=== PATIENT | male | born 1965 | race Caucasian/White ===

== ENCOUNTER 2018-09-27 05:44 | Emergency (ER) | payer OTHER ==
--- NOTE | 2018-09-27 08:35 | EDM.PDOC ---
ED HPI GENERAL MEDICAL PROBLEM - General Chief Complaint: Lower Extremity Injury/Pain Stated Complaint: Right Knee pain Time Seen by Provider: 09/27/18 06:15 Source of Information: Reports: Patient History Limitations: Reports: No Limitations - History of Present Illness INITIAL COMMENTS - FREE TEXT/NARRATIVE: Patient is a 53-year-old gentleman who was seen in the emergency room with chief complaint of right knee pain patient states that yesterday he was working at [email or web address] sitting on a bucket when he got up he had some knee pain after a while he walked out and the pain was relieved he went home ice the knee and went to sleep at around 4:00 he woke up with severe pain unable to move [place] evaluated x-rays revealed no fractures no some swelling in the suprapatellar area at this time I spoke with was applied and patient will be seen in orthopedic clinic at a later date patient called for appointment with orthopedics at . Onset: Sudden Duration: Hour(s):, Getting Worse Location: Reports: Lower Extremity, Right Quality: Reports: Stabbing Severity: Moderate Improves with: Reports: Rest Worsens with: Reports: Movement Context: Reports: Activity Associated Symptoms: Reports: No Other Symptoms Treatments SCREENING SPECIALIST: Reports: Cold Therapy, NSAIDS Right Knee Pain Score (Numeric/FACES): 8 - Related Data Allergies Allergy/AdvReac Type Severity Reaction Status Date / Time hydrocodone Allergy Palpitation Verified 10/06/14 21:14 s Home Meds: Home Meds Aspirin [Christianne Chewable Aspirin] 81 mg PO DAILY 06/11/14 [History] Celecoxib [CeleBREX] 200 mg PO DAILY 10/06/14 [History] Acetaminophen [Tylenol Extra Strength] 1,000 mg PO Q4HR PRN 09/27/18 [History] Lisinopril 5 mg PO DAILY 09/27/18 [History] Past Medical History Cardiovascular History: Reports: Hypertension Musculoskeletal History: Reports: Back Pain, Chronic - Past Surgical History Musculoskeletal Surgical History: Reports: Arthroscopic Knee, Shoulder Surgery, Other (See Below) Other Musculoskeletal Surgeries/Procedures:: Meniscus repair in L knee Social & Family History - Tobacco Use Smoking Status *Q: Current Every Day Smoker Years of Tobacco use: 12 Packs/Tins Daily: 1 - Caffeine Use Caffeine Use: Reports: Tea - Recreational Drug Use Recreational Drug Use: No - Living Situation & Occupation Living situation: Reports: , with Family Occupation: Employed Review of Systems - Review of Systems Review Of Systems: See Below Ears: Reports: No Symptoms Nose: Reports: No Symptoms Mouth/Throat: Reports: No Symptoms Respiratory: Reports: No Symptoms Cardiovascular: Reports: Other (Hypertension) GI/Abdominal: Reports: No Symptoms Genitourinary: Reports: No Symptoms Musculoskeletal: Reports: Other (Story of arthritis currently taking Celebrex) Skin: Reports: No Symptoms Neurological: Reports: No Symptoms Psychiatric: Reports: No Symptoms ED EXAM, GENERAL - Physical Exam Exam: See Below Exam Limited By: No Limitations General Appearance: Alert, WD/WN, No Apparent Distress Ears: Normal External Exam, Normal Canal, Hearing Grossly Normal, Normal TMs Nose: Normal Inspection, Normal Mucosa, No Blood Throat/Mouth: Normal Inspection, Normal Lips, Normal Teeth, Normal Gums, Normal Oropharynx, Normal Voice, No Airway Compromise Head: Atraumatic, Normocephalic Neck: Normal Inspection, Supple, Non-Tender, Full Range of Motion Respiratory/Chest: No Respiratory Distress, Lungs Clear, Normal Breath Sounds, No Accessory Muscle Use, Chest Non-Tender Cardiovascular: Normal Peripheral Pulses GI/Abdominal: Normal Bowel Sounds, Soft, Non-Tender, No Organomegaly, No Distention, No Abnormal Bruit, No Mass Back Exam: Normal Inspection, Full Range of Motion, NT Extremities: Joint Swelling (Right knee), Limited Range of Motion Neurological: Alert, Oriented, CN II-XII Intact, Normal Cognition, Normal Gait, Normal Reflexes, No Motor/Sensory Deficits Psychiatric: Normal Affect, Normal Mood Course - Vital Signs Last Recorded V/S: Last Vital Signs Temp 98.0 F 09/27/18 05:46 Pulse 89 09/27/18 05:46 Resp 18 09/27/18 05:46 BP 171/85 H 09/27/18 05:46 Pulse Ox 99 09/27/18 05:46 - Orders/Labs/Meds Orders: Active Orders 24 hr Category Date Time Status Knee 3V Rt [CR] Stat Exams 09/27/18 05:58 Taken Departure - Departure Time of Disposition: 08:40 Disposition: Home, Self-Care 01 Condition: Fair Clinical Impression: Right knee pain, Derangement of knee - Discharge Information *PRESCRIPTION DRUG MONITORING PROGRAM REVIEWED*: No *COPY OF PRESCRIPTION DRUG MONITORING REPORT IN PATIENT CARLOS: No Instructions: Knee Pain, Adult Referrals: Criss Almanza PA [Primary Care Provider] - Care Plan Goals: Discuss with orthopedics at [place] patient will be referred to orthopedics they are to call and schedule for an appointment he is to continue taking the Celebrex icing his knee on and off follow-up with orthopedic return if no improvement - My Orders Last 24 Hours: My Active Orders 09/27/18 05:58 Knee 3V Rt [CR] Stat - Assessment/Plan Last 24 Hours: My Active Orders 09/27/18 05:58 Knee 3V Rt [CR] Stat
[2018-09-27 09:27] VITALS: BP 151/89
== END 2018-09-27 09:10 | disposition home or self-care (01) ==
LOC: LL.ED 05:44
DX: M23.91 Unspecified internal derangement of right knee (principal); F17.210 Nicotine dependence, cigarettes, uncomplicated; I10 Essential (primary) hypertension; Z79.899 Other long term (current) drug therapy; Z88.6 Allergy status to analgesic agent
CPT/HCPCS: 73562-RT; 99283-25

== ENCOUNTER 2020-11-06 17:23 | Emergency (ER) | payer BC, OTHER ==
[2020-11-06 17:26] VITALS: BP 171/86; PULSE 102
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
== END 2020-11-06 18:12 | disposition home or self-care (01) ==
LOC: LL.ED 17:23
DX: S93.402A Sprain of unspecified ligament of left ankle, initial encounter (principal); I10 Essential (primary) hypertension; Z88.5 Allergy status to narcotic agent; Z72.0 Tobacco use; Z79.82 Long term (current) use of aspirin; Z79.899 Other long term (current) drug therapy; X50.1XXA Overexertion from prolonged static or awkward postures, initial encounter; Y99.0 Civilian activity done for income or pay
CPT/HCPCS: 73610-LT; 99283-25

== ENCOUNTER 2022-06-03 22:59 | Emergency (ER) | payer BC ==
[2022-06-03 23:10] VITALS: PULSE 85
[2022-06-04] VITALS: BP 149/90
== END 2022-06-04 00:15 | disposition home or self-care (01) ==
LOC: LL.ED 22:59
DX: R07.81 Pleurodynia (principal); M79.631 Pain in right forearm; M79.604 Pain in right leg; I10 Essential (primary) hypertension; Z79.899 Other long term (current) drug therapy; Z88.5 Allergy status to narcotic agent; Z79.82 Long term (current) use of aspirin
CPT/HCPCS: 71101-RT; 73090-RT; 73590-RT; 99283

== ENCOUNTER 2023-04-28 09:57 | Day surgery (SDC) | payer BC ==
[~2023-04-28 09:57] MED LIST: Midazolam 1 MG/ML 2 ML SDV ONE; Propofol 200 MG/20 ML SDV ONE
[2023-04-28] MEDS ORDERED: Lactated Ringers 1,000 ML IV SCH (10:15)
[2023-04-28] MEDS ORDERED: Sodium Chloride 0.9% 10 ML Syringe FLUSH PRN (10:15)
[2023-04-28 14:42] VITALS: BP 125/86; PULSE 90
== END 2023-04-28 13:22 | disposition home or self-care (01) ==
LOC: LL.SDS 09:57
PROVIDERS: ATTEND Surgery
DX: Z12.11 Encounter for screening for malignant neoplasm of colon (principal); D12.5 Benign neoplasm of sigmoid colon; K63.5 Polyp of colon; K57.30 Diverticulosis of large intestine without perforation or abscess without bleeding; I10 Essential (primary) hypertension; E78.00 Pure hypercholesterolemia, unspecified; F33.0 Major depressive disorder, recurrent, mild; F41.9 Anxiety disorder, unspecified; R73.03 Prediabetes; E66.01 Morbid (severe) obesity due to excess calories; Z68.42 Body mass index [BMI] 45.0-49.9, adult; M25.561 Pain in right knee; F17.210 Nicotine dependence, cigarettes, uncomplicated; Z79.82 Long term (current) use of aspirin; Z79.899 Other long term (current) drug therapy; Z88.5 Allergy status to narcotic agent
CPT/HCPCS: 00812; J2250; J2704; J7120

== ENCOUNTER 2024-05-24 17:04 | Emergency (ER) | payer BC ==
[2024-05-24] MEDS: Aspirin 81 MG Tab.Chew ONE (17:30)
[2024-05-24 17:54] LABS: BASOPHILS ABSOLUTE AUTO 0.05 K/uL (0.00-0.20); BASOPHILS PERCENT AUTO 0.5 % (0.0-2.0); EOSINOPHILS ABSOLUTE AUTO 0.11 K/uL (0.00-0.50); EOSINOPHILS PERCENT AUTO 1.1 % (0.0-5.0); HEMATOCRIT 55.9 % (39.0-49.0); IMMATURE GRAN ABSOLUTE AUTO 0.03 10^3/uL (0.00-0.04); IMMATURE GRAN PERCENT AUTO 0.3 % (0.0-0.4); INR 1.3 (0.9-1.1); LYMPHOCYTES ABSOLUTE AUTO 1.72 K/uL (0.50-3.50); LYMPHOCYTES PERCENT AUTO 17.5 % (10.0-50.0); MEAN CORPUSCULAR HEMOGLOBIN 27.2 pg (28.2-33.3); MEAN CORPUSCULAR HGB CONC 32.2 g/dL (31.7-36.0); MEAN CORPUSCULAR VOLUME 84.4 fL (84.0-98.0); MONOCYTES ABSOLUTE AUTO 0.87 K/uL (0.00-1.00); MONOCYTES PERCENT AUTO 8.8 % (2.0-14.0); NEUTROPHILS ABSOLUTE AUTO 7.07 K/uL (1.40-7.00); NEUTROPHILS PERCENT AUTO 71.8 % (45.0-80.0); PLATELET COUNT,PLT 145 K/uL (150-350); PROTHROMBIN TIME 12.7 SEC (9.0-11.1); RED BLOOD CELL COUNT 6.62 M/uL (4.33-5.41); RED CELL DISTRIBUTION WIDTH 15.2 % (11.2-14.1); WHITE BLOOD CELL COUNT,WBC 9.9 K/uL (4.0-10.2)
[2024-05-24] MEDS: Diltiazem 25 MG/5 ML SDV IVPUSH ONE (18:00)
[2024-05-24 18:05] LABS: ALBUMIN 3.4 g/dL (3.4-5.0); ANION GAP 12.1 meq/L (7-15); BILIRUBIN TOTAL 0.9 mg/dL (0.2-1.0); CALCIUM 9.2 mg/dL (8.5-10.1); CARBON DIOXIDE,CO2 22.9 mmol/L (21.0-32.0); CREATININE 1.23 mg/dL (0.51-1.17); EST CRCL DRUG DOSING (CG) 69.22 mL/min; MAGNESIUM 1.9 mg/dL (1.8-2.4); POTASSIUM,K 3.7 mmol/L (3.5-5.1); PROTEIN TOTAL,TP 6.7 g/dL (6.4-8.2)
[2024-05-24] MEDS: Sodium Chloride 0.9% 10 ML Syringe FLUSH PRN (18:05)
[2024-05-24] MEDS: LORazepam 1 MG Tab PO ONE (18:09)
[2024-05-24] MEDS: Sodium Chloride 0.9% 1,000 ML IV ONE ×2 (18:31→21:15)
[2024-05-24] MEDS: Diltiazem IR 60 MG Tab PO ONE (18:52)
[2024-05-24] MEDS: Iopamidol 755 Mg/ML 100 ML Bottle ONE (19:00)
[2024-05-24] MEDS: Heparin Sodium 5,000 Units/ML Vial IVPUSH ONE (19:59)
[2024-05-24] MEDS: Heparin Sodium/0.45% NaCl 500 ML IV SCH (20:01)
[2024-05-24] MEDS: Sodium Chloride 0.9% 500 ML IV SCH (20:53)
[2024-05-24 21:09] VITALS: BP 131/88; PULSE 94
== END 2024-05-24 21:59 ==
LOC: LL.ED 17:04
DX: I26.92 Saddle embolus of pulmonary artery without acute cor pulmonale (principal); I10 Essential (primary) hypertension; E78.00 Pure hypercholesterolemia, unspecified; M19.90 Unspecified osteoarthritis, unspecified site; E66.9 Obesity, unspecified; Z68.41 Body mass index [BMI] 40.0-44.9, adult; F17.210 Nicotine dependence, cigarettes, uncomplicated; Z88.5 Allergy status to narcotic agent; Z91.048 Other nonmedicinal substance allergy status; Z79.82 Long term (current) use of aspirin; Z79.899 Other long term (current) drug therapy
CPT/HCPCS: 36415; 71045; 71275; 80053; 83605; 83735; 83880; 84443; 84484; 85025; 85379; 85610; 85730; 93005; 93010; 96361; 96365; 96366; 96367; 96375; 99284; 99285-25; A9270-GY; J1644; J3475; J3490; J7030; J7040; Q9967